=== PATIENT | male | born 1980 | race Caucasian/White ===

== ENCOUNTER 2020-09-17 10:44 | Outpatient (REF) | payer OTHER, SELFPAY ==
--- NOTE | 2020-09-17 11:06 | XR_ITS ---
EXAMINATION: XR LUMBOSACRAL SPINE CLINICAL INFORMATION: Back pain. COMPARISON: None TECHNIQUE: Three views of the lumbosacral spine. FINDINGS: There is mild straightening of lumbar lordosis with ankyloses of posterior elements consistent with ankylosing spondylitis. There is no visible fractures seen. There is loss of disc height at L2-L3, L3-L4 and L4-L5 disc heights. The neural foramina appear to be patent. The paravertebral soft tissues are normal. No lytic process. XR/XR lumbar spine 2-3V IMPRESSION: Ankylosing spondylitis involving the posterior elements with straightening of lumbar lordosis. No visible acute fracture or lytic process seen.
[2020-09-17 11:56] LABS: MANUAL DIFF FLAG NO
[2020-09-17 12:07] LABS: Basophils Absolute Auto 0.1 X10*3/uL (0.0-0.2); Basophils Percent Auto 1.7 % (0-2); Eosinophils Absolute Auto 0.3 X10*3/uL (0.0-0.4); Eosinophils Percent Auto 5.9 % (0-4); Hematocrit 47.2 % (42-52); Hemoglobin 16.1 g/dl (14.0-18.0); Imm Gran Abs Auto 0.01 X10*3/uL (0.00-0.03); Imm Gran Pct Auto 0.2 % (0.0-0.4); Lymphocytes Absolute Auto 1.9 X10*3/uL (1.2-4.9); Lymphocytes Percent Auto 36.5 % (20-40); Mean Corpuscular HGB Conc 34.1 g/dl (31.0-36.0); Mean Corpuscular Hemoglobin 32.3 pg (27.0-33.0); Mean Corpuscular Volume 94.8 fL (80-98); Monocytes Absolute Auto 0.4 X10*3/uL (0.1-1.2); Monocytes Percent Auto 7.8 % (2-11); Neutrophils Absolute Auto 2.5 X10*3/uL (2.0-8.3); Neutrophils Percent Auto 47.9 % (45-73); Platelet Count 202 X10*3/uL (160-400); Red Blood Count 4.98 X10*6/uL (4.60-5.80); Red Cell Distribution Width 12.4 % (11.0-16.0); White Blood Count 5.3 X10*3/uL (4.8-10.8)
[2020-09-17 12:35] LABS: Alanine Aminotransferase 155 U/L (0-40); Albumin Level 4.9 g/dL (3.5-5.0); Alkaline Phosphatase 50 U/L (39-117); Anion Gap 12 (12-20); Aspartate Amino Transferase 72 U/L (5-37); Bilirubin Total 1.2 mg/dL (0.0-1.0); Blood Urea Nitrogen 17 mg/dL (9-16); Calcium 8.8 mg/dL (8.4-10.2); Carbon Dioxide 30 mmol/L (22-29); Chloride 104 mmol/L (96-108); Cholesterol 275 mg/dL; Estimated Glomerular Filt Rate > 60; Glucose Random 84 mg/dL (60-115); Potassium 4.7 mmol/l (3.3-5.1); Sodium 141 mmol/L (135-145); Total Protein 7.7 g/dL (6.5-8.0)
== END 2020-09-17 10:45 | disposition home or self-care (01) ==
LOC: HO.LAB 10:44
PROVIDERS: PCP Internal Medicine; Visit Provider Internal Medicine
DX: M54.9 Dorsalgia, unspecified (principal); J45.909 Unspecified asthma, uncomplicated; R79.89 Other specified abnormal findings of blood chemistry
CPT/HCPCS: 36415; 72100; 80053; 82465; 85025

== ENCOUNTER 2020-09-28 07:42 | Outpatient (REF) | payer OTHER, SELFPAY ==
--- NOTE | 2020-09-28 | US_ITS ---
EXAMINATION: US ABDOMEN COMPLETE CLINICAL INFORMATION: Elevated liver enzymes. COMPARISON: KUB dated 07/28/2014 and renal ultrasound dated 06/19/2014 TECHNIQUE: Real-time imaging of the abdominal viscera. FINDINGS: PANCREAS: Visualized portions of the pancreas are unremarkable. ABDOMINAL AORTA: The proximal, mid, and distal segments are normal in caliber. INFERIOR VENA CAVA: Visualized portions are normal. LIVER: The liver is normal in size. The liver contour is normal. There is increased liver parenchymal echogenicity with some areas of normal echogenicity likely reflecting hepatic steatosis with focal fatty sparing. No discrete lesions. No focal hepatic lesion. There is no intrahepatic biliary duct dilatation seen. GALLBLADDER: The gallbladder is physiologically distended without evidence of stones, sludge, polyps, wall thickening or pericholecystic fluid. COMMON BILE DUCT: Normal in caliber measuring 0.3 cm in diameter. RIGHT KIDNEY: No hydronephrosis or focal parenchymal lesions. The kidney measures 10.6 cm in maximum dimension. Upper pole nonobstructing 3 mm calculus and a lower pole nonobstructing 3.5 mm calculus. LEFT KIDNEY: No hydronephrosis or focal parenchymal lesions. The kidney measures 10.8 cm in maximum dimension. Nonobstructing calculi in the midpole measuring 4 mm, 3 mm and 6 mm SPLEEN: Normal. The spleen measures 11.4 cm in maximum dimension. FREE FLUID: None. US/US abdomen complete IMPRESSION: Bilateral nonobstructing renal calculi. Hepatic steatosis with areas of focal fatty sparing.
== END 2020-09-28 07:43 | disposition home or self-care (01) ==
LOC: HO.US 07:42
PROVIDERS: PCP Internal Medicine; Visit Provider Internal Medicine
DX: R94.5 Abnormal results of liver function studies (principal)
CPT/HCPCS: 76700

== ENCOUNTER 2023-06-06 16:49 | Emergency (ER) | payer OTHER, SELFPAY ==
[2023-06-06 17:28] VITALS: BP 153/82; PULSE 55; RESP 18; TEMP 36.9; O2SAT 98; BMI 28.4
--- NOTE | 2023-06-06 17:28 | ED_ITS ---
HPI - General Adult General Chief complaint: Skin/Abscess/Foreign Body Stated complaint: sun blisters on back Time Seen by Provider: 06/06/23 17:28 Source: patient Mode of arrival: ambulatory Limitations: no limitations History of Present Illness HPI narrative: 43 yo male with history of asthma, chronic back and hip pain here with sunburn to back x 3 days after working outside in the sun for long hours with no anderson nscreen. Related Data Allergies Allergy/AdvReac Type Severity Reaction Status Date / Time iodine [IODINE] Allergy Mild RASH Unverified 08/06/20 17:34 Review of Systems Review of Systems: Yes all other systems are reviewed and are negative Constitutional: Constitutional: Reports no additional constitutional complaints, Denies body ache(s), Denies chills, Denies fever(s), Denies headache(s) and Denies weakness Eyes: Eyes: Reports no additional eye complaints and Denies change in vision ENT: Reports system reviewed and no additional complaints, except as documented, Denies dizziness, Denies headache(s), Denies nasal congestion, Denies nasal discharge and Denies neck pain Cardiovascular: Cardiovascular: Reports no additional cardiovascular complaints, Denies chest pain, Denies leg edema and Denies dyspnea Respiratory: Respiratory: Reports no additional respiratory complaints, Denies cough and Denies dyspnea Gastrointestinal: Gastrointestinal: Reports no additional gastrointestinal complaints, Denies abdominal pain, Denies diarrhea, Denies nausea and Denies vomiting Genitourinary: Genitourinary: Denies urinary incontinence Musculoskeletal: Musculoskeletal: Reports no additional musculoskeletal complaints, Denies back pain, Denies arthralgias, Denies joint swelling, Denies neck pain, Denies numbness and Denies tingling Integumentary/Breasts: Skin/Breast: Reports system reviewed and no additional complaints, except as docu and Reports rash Neurologic: Reports system reviewed and no additional complaints, except as documented, Denies dizziness, Denies headache(s), Denies numbness, Denies tingling and Denies weakness [facility] Past Medical History Attestation statement: The following information was validated with the patient. Source: old records reviewed and nursing notes reviewed Social History Social History Advance Directives: No Advance Directives Information Provided: No Physical Exam ED Vital Signs: Vital Signs - 24 hr 06/06/23 17:28 Temperature 98.5 F Pulse Rate 55 Respiratory Rate 18 Blood Pressure 153/82 H Pulse Oximetry 98 Oxygen Delivery Method Room Air BMI result Body Mass Index 28.4 Const General: cooperative, healthy appearing, comfortable and no acute distress Orientation/consciousness: patient oriented x3 Limitations: no limitations HENMT Head: Yes normal to inspection Ears: hearing grossly normal bilaterally Eyes General: appearance normal, both eyes and all related structures Pupils: Equal, round and reactive pupils present Neck Neck: Yes normal visual inspection Chest Chest palpation & inspection: normal inspection of the chest Resp Effort & Inspection: normal respiratory effort Auscultation: clear to auscultation bilaterally Cardio Rate: regular rate Rhythm: regular rhythm Peripheral pulses: Peripheral pulses 2+ throughout GI Inspection: Yes normal to inspection Skin Other: To the upper and lower back there is erythema-blanchable. Several small areas of blistering Neuro General: patient oriented x3 Cranial nerves: Yes Equal, round and reactive pupils present Medical Decision Making Medical Decision Making MDM Narrative: 43 yo male here with sunburn to back x 3 days. On exam patient has erythema to the upper and lower back with several areas of blistering. Overall patient non toxic appearing We discussed cold compresses, motrin/tylenol, aloe vera as needed Differential Diagnosis Differential Diagnoses: The differential diagnosis associated with the presentation includes Sun burn Less likely sun poisoning, heat exhaustion, cellulitis Discharge Plan Discharge Clinical Impression: Sunburn Patient Disposition: Home, Self-Care Instructions: Sunburn (ED), Cold Compress or Soak (ED) Additional Instructions: Motrin or tylenol for pain as needed Cold compresses Topical aloe vera as tolerated Referrals: Ted Lockwood MD [Primary Care Provider] - 1 week
== END 2023-06-06 17:46 | disposition home or self-care (01) ==
LOC: HO.ED 17:40
PROVIDERS: Emergency Provider Student in an Organized Health Care Education/Training Program; PCP Internal Medicine
DX: L55.9 Sunburn, unspecified (principal)
CPT/HCPCS: 99282

== ENCOUNTER 2024-05-13 09:27 | Outpatient (REF) | payer OTHER, SELFPAY ==
[2024-05-13 11:07] LABS: MANUAL DIFF FLAG NO
[2024-05-13 11:10] LABS: Basophils Absolute Auto 0.1 X10*3/uL (0.0-0.2); Basophils Percent Auto 1.6 % (0-2); Eosinophils Absolute Auto 0.3 X10*3/uL (0.0-0.4); Eosinophils Percent Auto 5.3 % (0-4); Hematocrit 43.3 % (42.0-52.0); Hemoglobin 14.9 g/dl (14.0-18.0); Imm Gran Abs Auto 0.01 X10*3/uL (0.00-0.03); Imm Gran Pct Auto 0.2 % (0.0-0.4); Lymphocytes Absolute Auto 1.2 X10*3/uL (1.2-4.9); Lymphocytes Percent Auto 24.3 % (20-40); Mean Corpuscular HGB Conc 34.4 g/dl (31.0-36.0); Mean Corpuscular Hemoglobin 31.6 pg (27.0-33.0); Mean Corpuscular Volume 91.9 fL (80.0-98.0); Mean Platelet Volume 10.7 fL (9.4-12.4); Monocytes Absolute Auto 0.4 X10*3/uL (0.1-1.2); Monocytes Percent Auto 7.8 % (2-11); Neutrophils Percent Auto 60.8 % (45-73); Platelet Count 210 X10*3/uL (160-400); Red Blood Count 4.71 X10*6/uL (4.60-5.80); Red Cell Distribution Width 12.8 % (11.0-16.0); White Blood Count 4.9 X10*3/uL (4.8-10.8)
[2024-05-13 11:28] LABS: Alanine Aminotransferase 63 U/L (0-40); Albumin Level 4.7 g/dL (3.5-5.0); Alkaline Phosphatase 43 U/L (39-117); Anion Gap 16 (12-20); Aspartate Amino Transferase 36 U/L (5-37); Blood Urea Nitrogen 18 mg/dL (9-16); Calcium 9.2 mg/dL (8.4-10.2); Carbon Dioxide 28 mmol/L (22-29); Chloride 105 mmol/L (96-108); Cholesterol 197 mg/dL (<200); Estimated Glomerular Filt Rate > 60; Glucose Fasting 78 mg/dL (60-99); HDL Cholesterol 37 mg/dL (>40); LDL Cholesterol Calculated 130 mg/dL (<100); Potassium 3.9 mmol/L (3.3-5.1); Sodium 145 mmol/L (135-145); Total Protein 7.7 g/dL (6.5-8.0); Triglycerides 153 mg/dL (<150)
[2024-05-13 11:47] LABS: ~HepC Num1 0.27 S/CO (0.00-0.79); ~Hepatitis C Antibody Nonreactive (Nonreactive)
== END 2024-05-13 09:28 | disposition home or self-care (01) ==
LOC: HO.10HDL 09:27
PROVIDERS: Visit Provider Internal Medicine
DX: E78.00 Pure hypercholesterolemia, unspecified (principal); R79.89 Other specified abnormal findings of blood chemistry
CPT/HCPCS: 36415; 80053; 80061; 85025; 86803

== ENCOUNTER 2025-01-18 17:23 | Emergency (ER) | payer OTHER, SELFPAY ==
--- NOTE | ~2025-01-18 | XR_ITS ---
CLINICAL HISTORY: trauma 3 view third digit/middle finger of the left hand Comparison: None Findings: There is a 7 x 5 mm avulsed bony fragment in the base of the distal phalanx along the dorsal aspect. No dislocation. No significant loss of joint space or osteophytes. No erosions. No radiopaque foreign body. IMPRESSION: Large avulsion fracture of the base of the distal phalanx with dorsal displacement. This document has been electronically signed by: Darya Saul DO on 01/18/2025 18:39:12
--- NOTE | ~2025-01-18 | XR_ITS ---
CLINICAL HISTORY: trauma 2 view left forearm Comparison: None Findings: There is a comminuted fracture in the distal ulnar diametaphysis. There is medial displacement with 3 mm maximum step-off. There is mild dorsal tilting. No joint effusion. No significant arthritic change. No radiopaque foreign body. Mild triceps tendon enthesopathy with a small defect. IMPRESSION: 1. Soft tissue swelling in the distal forearm with a mildly displaced and mildly angulated comminuted fracture in the distal ulna. 2. Age-indeterminate fragmented small posterior olecranon spur. This document has been electronically signed by: Darya Saul DO on 01/18/2025 18:28:52
[2025-01-18 17:33] VITALS: BP 158/94; PULSE 85; RESP 18; TEMP 36.8; O2SAT 94; BMI 24.8
[2025-01-18 18:16] VITALS: BP 183/106; PULSE 80; RESP 20; TEMP 36.9; O2SAT 93
[2025-01-18] MEDS: Ketorolac Tromethamine 30 MG/ML VIAL IVPUSH (18:29)
[2025-01-18] MEDS: ondansetron HCL 4 MG/2 ML VIAL IVPUSH (18:29)
[2025-01-18] MEDS: Morphine Sulfate 4 MG/ML CARTRIDGE IVPUSH (20:28)
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
[2025-01-18 21:39] VITALS: BP 183/106; PULSE 80; RESP 20; TEMP 36.9; O2SAT 93
== END 2025-01-18 21:40 | disposition home or self-care (01) ==
PROVIDERS: Emergency Provider Emergency Medicine
DX: S52.692A Other fracture of lower end of left ulna, initial encounter for closed fracture (principal); S62.633A Displaced fracture of distal phalanx of left middle finger, initial encounter for closed fracture; Y04.2XXA Assault by strike against or bumped into by another person, initial encounter; Y93.89 Activity, other specified; Y92.199 Unspecified place in other specified residential institution as the place of occurrence of the external cause; Y99.9 Unspecified external cause status
CPT/HCPCS: 29125; 73090; 73140; 96374; 96375; 99283; 99284; J1885; J2270; J2405

== ENCOUNTER → 2025-01-18 17:53 | Outpatient (BNV) | payer OTHER, SELFPAY | PROVIDERS: Visit Provider Radiology Diagnostic Radiology | DX: M25.532 Pain in left wrist (principal); M79.642 Pain in left hand | CPT/HCPCS: 73090; 73140 ==

== ENCOUNTER 2025-01-22 08:45 | Outpatient (AMB) | payer OTHER, SELFPAY ==
[2025-01-22 09:10] VITALS: BMI 24.8
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
== END 2025-01-22 10:26 | disposition home or self-care (01) ==
PROVIDERS: Visit Provider Orthopaedic Surgery
DX: S52.202A Unspecified fracture of shaft of left ulna, initial encounter for closed fracture (principal); S62.633A Displaced fracture of distal phalanx of left middle finger, initial encounter for closed fracture; F17.210 Nicotine dependence, cigarettes, uncomplicated; J45.909 Unspecified asthma, uncomplicated
CPT/HCPCS: 25560; 99204

== ENCOUNTER → 2025-01-22 08:55 | Outpatient (BNV) | payer OTHER, SELFPAY | PROVIDERS: Visit Provider Radiology Diagnostic Radiology | DX: M25.532 Pain in left wrist (principal); S52.202A Unspecified fracture of shaft of left ulna, initial encounter for closed fracture; M79.642 Pain in left hand; S62.633A Displaced fracture of distal phalanx of left middle finger, initial encounter for closed fracture | CPT/HCPCS: 73110; 73130 ==

== ENCOUNTER 2025-01-22 14:48 | Outpatient (REF) | payer OTHER, SELFPAY ==
--- NOTE | ~2025-01-22 | XR_ITS ---
CLINICAL HISTORY: M25.532 - Pain in left wrist 3 view left hand 3 view left wrist Comparison: CR - XR FOREARM LT 2V - 01/18/25 17:58 EST CR - XR FINGER LT MIN 2V - 01/18/25 17:57 EST Findings: Comminuted fracture of the base of the 3rd distal phalanx with extension to the distal interphalangeal joint. There is posterior displacement of the comminuted fracture fragments. This is not significantly changed. No significant bony reparative changes. An additional small nondisplaced avulsion fracture at the palmar aspect of the base of the middle phalanx with extension to the proximal interphalangeal joint which was previously not seen. Comminuted fracture at the distal ulna metadiaphysis with mild dorsal angulation. This is not significantly changed from the previous examination. No significant bony reparative changes. No additional fracture seen. No dislocation. No erosions. Soft tissue swelling has improved. No radiopaque foreign body. IMPRESSION: 1. New small nondisplaced avulsion fracture at the palmar aspect of the base of the middle phalanx with extension to the proximal interphalangeal joint. 2. Improvement in soft tissue swelling. Otherwise, no significant change in the comminuted fracture of the base of the 3rd distal phalanx and distal ulna. No radiographic evidence of bony reparative changes. This document has been electronically signed by: Laurel Acosta MD on 01/24/2025 11:15:00
--- NOTE | ~2025-01-22 | XR_ITS ---
CLINICAL HISTORY: M79.642 - Pain in left hand 3 view left hand 3 view left wrist Comparison: CR - XR FOREARM LT 2V - 01/18/25 17:58 EST CR - XR FINGER LT MIN 2V - 01/18/25 17:57 EST Findings: Comminuted fracture of the base of the 3rd distal phalanx with extension to the distal interphalangeal joint. There is posterior displacement of the comminuted fracture fragments. This is not significantly changed. No significant bony reparative changes. An additional small nondisplaced avulsion fracture at the palmar aspect of the base of the middle phalanx with extension to the proximal interphalangeal joint which was previously not seen. Comminuted fracture at the distal ulna metadiaphysis with mild dorsal angulation. This is not significantly changed from the previous examination. No significant bony reparative changes. No additional fracture seen. No dislocation. No erosions. Soft tissue swelling has improved. No radiopaque foreign body. IMPRESSION: 1. New small nondisplaced avulsion fracture at the palmar aspect of the base of the middle phalanx with extension to the proximal interphalangeal joint. 2. Improvement in soft tissue swelling. Otherwise, no significant change in the comminuted fracture of the base of the 3rd distal phalanx and distal ulna. No radiographic evidence of bony reparative changes. This document has been electronically signed by: Laurel Acosta MD on 01/24/2025 11:14:15
== END 2025-01-22 14:49 | disposition home or self-care (01) ==
LOC: HO.HOSX 14:48
PROVIDERS: Visit Provider Orthopaedic Surgery
DX: M25.532 Pain in left wrist (principal); M79.642 Pain in left hand; S52.202A Unspecified fracture of shaft of left ulna, initial encounter for closed fracture; S62.633A Displaced fracture of distal phalanx of left middle finger, initial encounter for closed fracture; J45.909 Unspecified asthma, uncomplicated; F17.210 Nicotine dependence, cigarettes, uncomplicated
CPT/HCPCS: 25560; 73110; 73130; 99202

== ENCOUNTER 2025-01-23 07:48 | Day surgery (SDC) | payer OTHER, SELFPAY ==
[2025-01-22 10:45] VITALS: BMI 24.8
--- NOTE | 2025-01-22 12:16 | HO.ANESPROP2 ---
Documented by User: Sweta Hatch NP 01/22/25 12:16 HPI - Anesthesia Eval Consult details Narrative: 44yo M for Left Ulna Shaft Fracture ORIF, Middle Finger Fx CRPP vs ORIF PMFSH Active Problems Active Problems: All Active Problems Asthma (Acute) Cigarette smoker (Acute) Fracture of distal phalanx of left middle finger (Acute) Fracture of shaft of left ulna (Acute) Past Medical History Medical History Smoker Asthma Surgical History Surgical History Previous back surgery Social History Social History Patient Tobacco Use Status: Current everyday Tobacco user Have you been hit, kicked, punched, or otherwise hurt by someone within the past year? If so, by whom?: No Are you DNR?: No Advance Directives: No Advance Directives Information Provided: Yes Current occupational status: unemployed Current occupation: left hand Meds Allergies Allergy/AdvReac Type Severity Reaction Status Date / Time iodine [IODINE] Allergy Mild RASH Verified 01/22/25 09:19 latex Allergy Hives Verified 01/23/25 08:15 seafood Allergy Difficulty Verified 01/23/25 08:16 Breathing Home Medications ?Medication ?Instructions ?Recorded ?Confirmed ?Last Taken ?Type oxycodone 5 mg tablet 5 mg PO Q6H PRN severe pain 01/23/25 01/23/25 01/21/25 History Exam Height,Weight and Vital Signs: Height 6 ft Weight 83.007 kg Assessment and Plan Assessment Anesthesia Assessment: Chart Reviewed Documented by User: Viviana Love MD 01/23/25 14:40 PMFSH Past Medical History Medical History Smoker Asthma Family History Family history of problems with anesthesia: No Surgical History Surgical History Previous back surgery History of Problems with Anesthesia: No Social History Social History Patient Tobacco Use Status: Current everyday Tobacco user Have you been hit, kicked, punched, or otherwise hurt by someone within the past year? If so, by whom?: No Are you DNR?: No Advance Directives: No Advance Directives Information Provided: Yes Current occupational status: unemployed Current occupation: left hand Meds Allergies Allergy/AdvReac Type Severity Reaction Status Date / Time iodine [IODINE] Allergy Mild RASH Verified 01/22/25 09:19 latex Allergy Hives Verified 01/23/25 08:15 seafood Allergy Difficulty Verified 01/23/25 08:16 Breathing Home Medications ?Medication ?Instructions ?Recorded ?Confirmed ?Last Taken ?Type oxycodone 5 mg tablet 5 mg PO Q6H PRN severe pain 01/23/25 01/23/25 01/21/25 History Exam Airway Mallampati Class: II TM Dist: >3cm Neck ROM: Full Heart: rrr Lungs: cta Assessment and Plan Assessment Anesthesia Assessment: Anesthesia Plan Discussed Final Anesthetic Review Family History of Problems with Anesthesia: No History of Problems with Anesthesia: No NPO: Yes ASA Class: II (david) Final Preanesthetic Review: No Changes in Pt Med Stat, Meds/Allgs Chart Reviewed, Consent Obtained/Reviewed and Anes Risks/Benef Reviewed Patient Risk: Low Procedure Risk: Low Anesthetic Plan Anesthetic Plan: GA and Regional Block Disposition: Standard PACU
[2025-01-23] VITALS (7 sets, daily range): BP systolic 126–151; BP diastolic 81–100; PULSE 58–68; RESP 16–18; TEMP 36.3–36.9; O2SAT 93–97; BMI 25.5
--- NOTE | ~2025-01-23 | FL_ITS ---
EXAMINATION: FL GUIDANCE ONLY HISTORY: ULNA ORIF LEFT COMPARISON: Correlation is made with plain films of the left hand and wrist dated 01/22/2025. TECHNIQUE: Fluoroscopy time: 49.20 seconds. Cumulative Dose: 1.2130 mGy. DAP: 0.0733 mGym2 Images: 11. FINDINGS: Images demonstrate internal fixation of the previously seen comminuted fracture of the distal ulnar diaphysis with a plate and screws, as well as internal fixation of the previously seen comminuted fracture of the distal phalanx of the 3rd finger with a wire. FL/FL guidance in OR IMPRESSION: Fluoroscopy during procedure. Please see procedure report for additional information. Electronically signed by: Merritt Malone MD 01/27/2025 11:43 AM EDT
[2025-01-23] MEDS: Lactated Ringers 1,000 ML 100 ML IVCONT (08:49)
--- NOTE | 2025-01-23 15:02 | MHC.SHP ---
Pre-Procedural Eval Section A - 24 Hr Update-Section A only Date of Service: 01/23/25 The patient is an INPATIENT: No Changes since office visit: No Cold of Flu in the past 2 weeks, No New Medical Problems, No Changes in Medication and No Patient answered all questions The patient has been examined within 24 hours of the surgical procedure. The History & Physical has been completed within 30 days and I have reviewed it.: Yes Section B - Complete if H&P > 30 days Chief Complaint: Unspecified fracture of shaft of left ulna, Allergies: Allergies Allergy/AdvReac Type Severity Reaction Status Date / Time iodine [IODINE] Allergy Mild RASH Verified 01/22/25 09:19 latex Allergy Hives Verified 01/23/25 08:15 seafood Allergy Difficulty Verified 01/23/25 08:16 Breathing Plan I have reviewed the history and physical and performed a pertinent physical examination on my patient. No changes have occurred unless specified. Time Spent With Patient Time: Total time managing care of this patient today ____ minutes.
--- NOTE | 2025-01-23 15:02 | W.PM.OPN ---
Operative Note Operative Note Date of Service: 01/23/25 Narrative: Operative Note Narrative: Preop diagnosis: 1. Left distal ulnar shaft fracture with comminution 2. Left middle finger distal phalanx fracture, possibly open Postop diagnosis: Same Procedure: 1. Left distal ulnar shaft fracture ORIF 2. Left middle finger distal phalanx fracture closed reduction percutaneous pinning, Surgeon: Jaquelin Avelar MD Email Designer: Nathanael BEST Anesthesia: General Anesthesia plus regional block Findings: Comminuted ulnar shaft fracture Implants: Accu Med volar distal ulnar shaft locking plate, long, 2.3 mm screws times 4, and 3.5 mm screws x3 0.045 K-wires times 1 Tourniquet time: 73 minutes EBL: 5.0 ml Specimen: None Drains: None Complications: None Disposition: Brought to the recovery room in stable condition Plan: Discharge home with 1 week of p.o. Augmentin for possible open distal phalanx fracture Follow-up in 10-14 days for wound check, suture removal and pre clinic x-rays. At follow-up place in short-arm cast for an additional 3 weeks or until healing of ulna shaft fracture Anticipate removal of K-wire at 5-6 weeks Indications: The patient is a 44 year old man with a left comminuted distal ulnar shaft fracture from a nightstick type injury, and a left middle finger bony mallet fracture where he is unsure whether he had bleeding from under the nail . The risks and benefits of operative treatment, including but not limited to risk of damage to blood vessels, nerves, tendons, infection, recurrence, persistent pain or numbness, incomplete resolution of preoperative symptoms, or need for further surgery were discussed with the patient and they wished to proceed with surgery. Procedure: Once consent was obtained patient was brought back to the operating suite and placed in the operating table in a supine position. A regional block was performed by the anesthesia team. Perioperative antibiotics and anesthesia was administered by the anesthesia team. A tourniquet was applied to the proximal aspect of the left upper extremity and the limb was prepped and draped in a standard surgical fashion. The limb was elevated exsanguinated with Esmarch bandage and the tourniquet inflated to 250 mm of mercury for a total tourniquet time of 73 minutes. I made a 9 cm longitudinal incision over the distal aspect of the left ulnar shaft. The incision was made through the skin the subcutaneous tissues using a 15. Blade. I then dissected down to the ulnar border of the distal ulnar shaft using tenotomy scissors. I then elevated the pronator quadratus off the volar surface of the distal ulnar shaft using a 15. Blade and an elevator. There was some comminution of the ulnar shaft. I performed an open reduction. I then placed the long [facility] volar distal ulnar plate and positioned it appropriately on the ulnar shaft. It was held in position using 2 K-wires. I was happy with our reduction and placement of the volar locking plate on fluoroscopic images. I then placed a 3.5 mm cortical screw through the proximal oval hole after 1st drilling bicortically with a 2.8 mm drill bit and measuring with a depth gauge. I then placed a 3.5 mm locking screw through the proximal hole in the plate after 1st drilling with a 2.8 mm drill bit through the pre position drill guide and measuring with a depth gauge. I then placed 4x 2.3 mm locking screws in the distal aspect of the plate after drilling with a 2.0 mm drill bit with a pre position drill guide and measuring with a depth gauge. I then placed 1 additional 3.5 mm locking screw proximally in the plate with the technique noted above. The K-wires had been removed. Final radiographs were obtained and I was very satisfied with our reduction and placement of all implants. At this point the tourniquet was deflated and hemostasis obtained with a brief period of local pressure and bipolar electrocautery. The wound was copiously irrigated with normal saline. The subcutaneous layer was closed with 4-0 Vicryl suture, and the skin edges were reapproximated with 5-0 nylon suture. The wound was infiltrated with some 1% lidocaine with epinephrine for postop pain control and a sterile dressing was applied. The patient was then placed in a sugar-tong splint. I then turned my attention to the left middle finger bony mallet fracture of the distal phalanx. A closed reduction was performed and I placed a 0.045 K-wire retrograde through the tip of the finger. This was advanced retrograde across the D IP joint and into the middle phalanx. The dorsal fragment was also noted to be appropriately reduced. Once satisfied with the reduction I then bent the K-wire cut it short and placed a pin cap. A sterile dressing was applied. I then applied a volar Alumafoam splint. The patient appears to have tolerated the procedure well and with no complications. All digits were well vascularized conclusion of the case.
--- NOTE | 2025-01-23 15:58 | P.CONAN_ITS ---
[facility] Active Problems Active Problems: All Active Problems Asthma (Acute) Cigarette smoker (Acute) Fracture of distal phalanx of left middle finger (Acute) Fracture of shaft of left ulna (Acute) Past Medical History Medical History Smoker Asthma Functional capacity: independent ambulation Family History Family history of problems with anesthesia: No Surgical History Surgical History Previous back surgery History of Problems with Anesthesia: No Social History Social History Patient Tobacco Use Status: Current everyday Tobacco user Have you been hit, kicked, punched, or otherwise hurt by someone within the past year? If so, by whom?: No Are you DNR?: No Advance Directives: No Advance Directives Information Provided: Yes Current occupational status: unemployed Current occupation: left hand Meds Allergies Allergy/AdvReac Type Severity Reaction Status Date / Time iodine [IODINE] Allergy Mild RASH Verified 01/22/25 09:19 latex Allergy Hives Verified 01/23/25 08:15 seafood Allergy Difficulty Verified 01/23/25 08:16 Breathing Active Medications: Current Medications Albuterol Sulfate (Albuterol Sulfate (0.083%) 2.5 Mg/3 Ml Vial.Neb) 2.5 mg INHALE ONCE PRN PRN Reason: Shortness of Breath/Wheezing Lactated Ringer's (Lr) 1,000 mls @ 100 mls/hr IVCONT .Q10H SREEDHAR Last Admin: 01/23/25 08:49 Dose: 100 mls/hr Naloxone HCl (Naloxone Hcl 0.4 Mg/Ml Vial) 0.04 mg IVPUSH Q5M PRN PRN Reason: Excessive sedation or RR < 8 Ondansetron HCl (Ondansetron Hcl 4 Mg/2 Ml Vial) 4 mg IVPUSH ONCE PRN PRN Reason: Nausea and Vomiting Stop: 01/23/25 20:42 Home Medications ?Medication ?Instructions ?Recorded ?Confirmed ?Last Taken ?Type oxycodone 5 mg tablet 5 mg PO Q6H PRN severe pain 01/23/25 01/23/25 01/21/25 History Exam Height,Weight and Vital Signs: Height 6 ft Weight 85.23 kg Last Vital Signs Temp 98.4 F 01/23/25 13:52 Pulse 59 01/23/25 13:52 Resp 18 01/23/25 13:52 BP 131/81 01/23/25 13:52 Pulse Ox 97 01/23/25 13:52 O2 Del Method Room Air 01/23/25 13:52 Airway Mallampati Class: II TM Dist: >3cm Neck ROM: Full Heart: RRR Lungs: CTA Assessment and Plan Assessment Anesthesia Assessment: Anesthesia Plan Discussed and Chart Reviewed Final Anesthetic Review Family History of Problems with Anesthesia: No History of Problems with Anesthesia: No NPO: Yes ASA Class: II Final Preanesthetic Review: Meds/Allgs Chart Reviewed, Consent Obtained/Reviewed and Anes Risks/Benef Reviewed Patient Risk: Low Procedure Risk: Low Anesthetic Plan Anesthetic Plan: GA Disposition: Standard PACU
== END 2025-01-23 19:03 | disposition home or self-care (01) ==
PROVIDERS: Visit Provider Orthopaedic Surgery
PROC: (CPT 25545; principal; 2025-01-23 14:30)
PROC: (CPT 25545; 2025-01-23 14:30)
DX: S52.252A Displaced comminuted fracture of shaft of ulna, left arm, initial encounter for closed fracture (principal); S62.633A Displaced fracture of distal phalanx of left middle finger, initial encounter for closed fracture; Y00.XXXA Assault by blunt object, initial encounter; Y93.89 Activity, other specified; Y92.099 Unspecified place in other non-institutional residence as the place of occurrence of the external cause; Y99.9 Unspecified external cause status; J45.909 Unspecified asthma, uncomplicated; Z79.1 Long term (current) use of non-steroidal anti-inflammatories (NSAID); Z91.040 Latex allergy status; Z91.041 Radiographic dye allergy status; F17.210 Nicotine dependence, cigarettes, uncomplicated; Z98.890 Other specified postprocedural states; Z56.0 Unemployment, unspecified
CPT/HCPCS: 25545; 26756; C1713; J0131; J0171; J0665; J0690; J1100; J2003; J2004; J2250; J2405; J2704; J3010

== ENCOUNTER → 2025-01-23 07:48 | Outpatient (BNV) | payer OTHER, SELFPAY | PROVIDERS: Visit Provider Orthopaedic Surgery | DX: S52.202A Unspecified fracture of shaft of left ulna, initial encounter for closed fracture (principal); S62.633A Displaced fracture of distal phalanx of left middle finger, initial encounter for closed fracture | CPT/HCPCS: 25545; 26756 ==

== ENCOUNTER 2025-02-04 08:27 | Outpatient (REF) | payer OTHER, SELFPAY ==
--- NOTE | ~2025-02-04 | XR_ITS ---
EXAMINATION: XR FOREARM 2 VIEWS LEFT, XR HAND 3 OR MORE VIEWS LEFT HISTORY: S52.90XA - Unspecified fracture of unspecified forearm, initial encounter... COMPARISON: Comparison is made with the prior examination of the left hand dated 01/22/2025 and the prior examination of the left forearm dated 01/18/2025. FINDINGS: Three views of the left hand and AP and lateral views of the left forearm are submitted. Osseous mineralization is normal. In the interval since the prior study, the patient is status post internal fixation of the previously seen fracture of the distal phalanx of the middle finger with a single K wire. A dorsal fracture fragment remains mildly displaced. The remaining bones of the hand are intact. The patient is also status post internal fixation of the previously noted comminuted fracture of the distal ulnar metadiaphysis with a sideplate and multiple orthopedic screws. Alignment is near-anatomic. The joint spaces are maintained. The soft tissues are unremarkable. XR/XR forearm LT 2V IMPRESSION: Internal fixation of the previously seen fractures of the distal phalanx of the middle finger and the distal ulnar metadiaphysis. Electronically signed by: Merritt Malone MD 02/05/2025 07:50 AM EDT
--- NOTE | ~2025-02-04 | XR_ITS ---
EXAMINATION: XR FOREARM 2 VIEWS LEFT, XR HAND 3 OR MORE VIEWS LEFT HISTORY: S52.90XA - Unspecified fracture of unspecified forearm, initial encounter... COMPARISON: Comparison is made with the prior examination of the left hand dated 01/22/2025 and the prior examination of the left forearm dated 01/18/2025. FINDINGS: Three views of the left hand and AP and lateral views of the left forearm are submitted. Osseous mineralization is normal. In the interval since the prior study, the patient is status post internal fixation of the previously seen fracture of the distal phalanx of the middle finger with a single K wire. A dorsal fracture fragment remains mildly displaced. The remaining bones of the hand are intact. The patient is also status post internal fixation of the previously noted comminuted fracture of the distal ulnar metadiaphysis with a sideplate and multiple orthopedic screws. Alignment is near-anatomic. The joint spaces are maintained. The soft tissues are unremarkable. XR/XR hand LT min 3V IMPRESSION: Internal fixation of the previously seen fractures of the distal phalanx of the middle finger and the distal ulnar metadiaphysis. Electronically signed by: Merritt Malone MD 02/05/2025 07:50 AM EDT
== END 2025-02-04 08:28 | disposition home or self-care (01) ==
LOC: HO.HOSX 08:27
DX: M79.642 Pain in left hand (principal); S52.202D Unspecified fracture of shaft of left ulna, subsequent encounter for closed fracture with routine healing; S62.633D Displaced fracture of distal phalanx of left middle finger, subsequent encounter for fracture with routine healing; Z98.890 Other specified postprocedural states
CPT/HCPCS: 29075; 73090; 73130; 99212

== ENCOUNTER 2025-02-04 12:36 | Outpatient (AMB) | payer OTHER, SELFPAY ==
--- NOTE | 2025-02-04 12:56 | MHC.OFFVIS ---
Intake Visit Reasons: PO LT ulna shaft/MF P3 CRPP v ORIF 01/23/25 AR Intake Note: Abhi is a 44 year old left hand dominant man who presents today post operatively s/p Left distal ulnar shaft fracture ORIF and left middle finger distal phalanx fracture CRPP DOS: 01/23/25 w/ Dr Jaquelin Avelar. Patient reports that he is experiencing a burning throbbing pain with a current pain level 8 out of 10. He states pain medication oxycodone had not helped with his pain. He has completed antibiotics as prescribed. Allergies iodine [IODINE] Allergy (Mild, Verified 02/04/25 13:03) RASH latex Allergy (Verified 02/04/25 13:03) Hives seafood Allergy (Verified 02/04/25 13:03) Difficulty Breathing HPI HPI PO LT ulna shaft/MF P3 CRPP v ORIF 01/23/25 AR: Details: Abhi is a 44 year old left hand dominant man who presents today post operatively s/p Left distal ulnar shaft fracture ORIF and left middle finger distal phalanx fracture CRPP DOS: 01/23/25 w/ Dr Jaquelin Avelar. Patient reports that he is experiencing a burning throbbing pain with a current pain level 8 out of 10. He states pain medication oxycodone had not helped with his pain. He has completed antibiotics as prescribed. [facility] Medical History Smoker Asthma Surgical History Previous back surgery Social History Patient Tobacco Use Status: Current everyday Tobacco user Current occupational status: unemployed Current occupation: left hand Review of Systems Const All systems reviewed & are unremarkable except as noted in HPI and below Physical Exam Extrem Other: Patient is alert, oriented, and in no acute distress. Neuro: Normal sensation of the tips of all digits of the left hand at this time Vascular: Cap refill brisk Pain: Mild tenderness to palpation about the incision site on the ulnar aspect of the left wrist No tenderness to palpation about pin site at tip of left middle finger ROM: Patient was able to make closed fist and extend all digits of the left hand fully No active flexion at the left middle finger DIP joint due to pin Skin: Well approximated and well healing incision site noted on the ulnar aspect of the left wrist Sutures in place, no evidence of infection General: Pin site clean, dry, intact No ecchymosis, erythema, or evidence of infection. Psych: Appears grossly normal Affect normal Attitude cooperative Office Procedures Casting/Splints [id number]-[id number] Cast Application Procedure code (CPT) selection complete Assessment & Plan Assessment & Plan (1) Fracture of distal phalanx of left middle finger: Comment: Base Code(s): S62.633A - Displaced fracture of distal phalanx of left middle finger, initial encounter for closed fracture Category: Medical (2) Fracture of shaft of left ulna: Code(s): S52.A - Unspecified fracture of shaft of left ulna, initial encounter for closed fracture Category: Medical Plan 1. Status post ORIF of left ulnar shaft 2. Status post CRPP of distal phalanx of left middle finger DOS 01/23/2025 Patient appears to be recovering well postoperatively Patient is educated about the typical recovery course At this time, patient was placed into a short-arm cast Patient is educated on proper cast care and precautions Patient was also educated on proper pin site care and precautions, and is provided with dressing supplies for the left middle finger Patient is educated he should keep the pin site dressed at all times Patient expresses understanding of these instructions Patient will follow-up in 2 weeks with repeat x-rays for reassessment, sooner with any acute concerns Orders: Orders XR hand LT min 3V 02/04/25 M79.642 - Pain in left hand XR forearm LT 2V 02/04/25 S52.209A - Unspecified fracture of shaft of unspecified ulna, initial encounter for closed fracture, S52.90XA - Unspecified fracture of unspecified forearm, initial encounter for closed fracture Coding Level of Care Code Global (85102) Diagnoses Fracture of distal phalanx of left middle finger S62.633A Fracture of shaft of left ulna S52.A CPT Codes Casting - CPT: 30562-Lvrpnrw Cast Application ([id number])
== END 2025-02-04 14:02 | disposition home or self-care (01) ==
LOC: HO.HOS 12:37
PROVIDERS: PCP Internal Medicine Medical Oncology
DX: S62.633A Displaced fracture of distal phalanx of left middle finger, initial encounter for closed fracture (principal); S52.202A Unspecified fracture of shaft of left ulna, initial encounter for closed fracture
CPT/HCPCS: 29075; 99024

== ENCOUNTER → 2025-02-04 12:42 | Outpatient (BNV) | payer OTHER, SELFPAY | PROVIDERS: Visit Provider Radiology Diagnostic Radiology | DX: S62.633A Displaced fracture of distal phalanx of left middle finger, initial encounter for closed fracture (principal); S52.502A Unspecified fracture of the lower end of left radius, initial encounter for closed fracture | CPT/HCPCS: 73090; 73130 ==

== ENCOUNTER 2025-02-18 12:34 | Outpatient (REF) | payer OTHER, SELFPAY ==
--- NOTE | ~2025-02-18 | XR_ITS ---
EXAMINATION: XR HAND 3 OR MORE VIEWS LEFT, XR FOREARM 2 VIEWS LEFT HISTORY: M79.642 - Pain in left hand COMPARISON: Comparison is made with the prior examinations dated 02/04/2025. FINDINGS: Three views of the left hand and AP and lateral views of the left forearm are submitted. Osseous mineralization is normal. Again seen is a single K wire across the DIP joint of the middle finger. The fracture of the base of the distal phalanx is again seen. There is slight blurring of the fracture margins on the current study. The patient is also noted to be status post internal fixation of a comminuted fracture of the distal ulna with a sideplate and multiple orthopedic screws. The fracture lines remain visible. The joint spaces are preserved. The soft tissues are unremarkable. XR/XR hand LT min 3V IMPRESSION: Internal fixation of the fractures of the distal phalanx of the little finger and the distal ulna as described. Electronically signed by: Merritt Malone MD 02/19/2025 08:39 AM EDT
--- NOTE | ~2025-02-18 | XR_ITS ---
EXAMINATION: XR HAND 3 OR MORE VIEWS LEFT, XR FOREARM 2 VIEWS LEFT HISTORY: M79.642 - Pain in left hand COMPARISON: Comparison is made with the prior examinations dated 02/04/2025. FINDINGS: Three views of the left hand and AP and lateral views of the left forearm are submitted. Osseous mineralization is normal. Again seen is a single K wire across the DIP joint of the middle finger. The fracture of the base of the distal phalanx is again seen. There is slight blurring of the fracture margins on the current study. The patient is also noted to be status post internal fixation of a comminuted fracture of the distal ulna with a sideplate and multiple orthopedic screws. The fracture lines remain visible. The joint spaces are preserved. The soft tissues are unremarkable. XR/XR forearm LT 2V IMPRESSION: Internal fixation of the fractures of the distal phalanx of the little finger and the distal ulna as described. Electronically signed by: Merritt Malone MD 02/19/2025 08:39 AM EDT
== END 2025-02-18 12:35 | disposition home or self-care (01) ==
LOC: HO.HOSX 12:34
DX: S62.637D Displaced fracture of distal phalanx of left little finger, subsequent encounter for fracture with routine healing (principal); S52.602D Unspecified fracture of lower end of left ulna, subsequent encounter for closed fracture with routine healing; Z98.890 Other specified postprocedural states
CPT/HCPCS: 29075; 73090; 73130; 99212

== ENCOUNTER 2025-02-18 12:46 | Outpatient (AMB) | payer OTHER, SELFPAY ==
--- NOTE | 2025-02-18 13:07 | A.OFFVIS_ITS ---
Vital Signs 02/18/25 13:11 Height 5 ft 11 in Weight 183 lb BMI 25.5 Handedness Left Intake Visit Reasons: PO LT ulna shaft/MF P3 CRPP v ORIF 01/23/25 AR Intake Note: Abhi is a 44 year old left hand dominant male who presents today post operatively s/p left distal ulnar shaft fracture ORIF and left middle finger distal phalanx fracture CRPP DOS: 01/23/[address] Jaquelin Avelar. On 02/04/25 patient was placed in a short arm cast. Patient report he has pain in the left wrist and middle finger. He states he has current tingling in his left fingers radiating into the elbow. Patient has bruising on the distal aspect of left middle finger. Allergies iodine [IODINE] Allergy (Mild, Verified 02/18/25 13:12) RASH latex Allergy (Verified 02/18/25 13:12) Hives seafood Allergy (Verified 02/18/25 13:12) Difficulty Breathing HPI HPI PO LT ulna shaft/MF P3 CRPP v ORIF 01/23/25 AR: Details: Abhi is a 44 year old left hand dominant male who presents today post operatively s/p left distal ulnar shaft fracture ORIF and left middle finger distal phalanx fracture CRPP DOS: 01/23/[address] Jaquelin Avelar. On 02/04/25 patient was placed in a short arm cast. Patient report he has pain in the left wrist and middle finger. He states he has current tingling in his left fingers radiating into the elbow. Patient has bruising on the distal aspect of left middle finger. [facility] Medical History (Updated 02/18/25 @ 13:13 by DAVID Woodson) Fracture of shaft of left ulna Fracture of distal phalanx of left middle finger Smoker Asthma Surgical History Previous back surgery Social History Patient Tobacco Use Status: Current everyday Tobacco user Current occupational status: unemployed Current occupation: left hand Review of Systems Const All systems reviewed & are unremarkable except as noted in HPI and below Physical Exam Vital Signs: BMI result Body Mass Index 25.5 Extrem Other: Patient is alert, oriented, and in no acute distress. Neuro: Normal sensation of the tips of all digits of the left hand at this time Vascular: Cap refill brisk Pain: Mild tenderness to palpation about the incision site on the ulnar aspect of the left wrist No tenderness to palpation about pin site at tip of left middle finger ROM: Patient was able to make closed fist and extend all digits of the left hand fu lly No active flexion at the left middle finger DIP joint due to pin Skin: Well approximated and well healing incision site noted on the ulnar aspect of the left wrist Sutures in place, no evidence of infection General: Pin site clean, dry, intact No ecchymosis, erythema, or evidence of infection. Psych: Appears grossly normal Affect normal Attitude cooperative Office Procedures Casting/Splints 01325-Upxf/Wrist Cast Application 43840-Ecwipb Splint application Procedure code (CPT) selection complete Results Reviewed Results Reviewed: X-rays obtained in the office today and independently reviewed by me, Nathanael Jameson PA-C, demonstrate surgically reduced fracture of the left ulnar shaft as well as the left middle finger distal phalanx with all orthopedic hardware in place and in satisfactory clinical alignment. Assessment & Plan Assessment & Plan (1) Fracture of distal phalanx of left middle finger: Comment: Base Code(s): S62.633A - Displaced fracture of distal phalanx of left middle finger, initial encounter for closed fracture Category: Medical (2) Fracture of shaft of left ulna: Code(s): S52.202A - Unspecified fracture of shaft of left ulna, initial encounter for closed fracture Category: Medical Plan 1. Status post ORIF of left ulnar shaft 2. Status post CRPP of distal phalanx of left middle finger DOS 01/23/2025 Patient appears to be recovering well postoperatively Patient is educated about the typical recovery course At this time, patient was placed into a short-arm cast Patient is educated on proper cast care and precautions Patient was also educated on proper pin site care and precautions, and is provided with dressing supplies for the left middle finger Patient is educated he should keep the pin site dressed at all times Patient expresses understanding of these instructions Patient will follow-up in 2 weeks with repeat x-rays for reassessment, sooner with any acute concerns Orders: Orders XR hand LT min 3V 02/18/25 M79.642 - Pain in left hand XR forearm LT 2V 02/18/25 S52.209A - Unspecified fracture of shaft of unspecified ulna, initial encounter for closed fracture, S52.90XA - Unspecified fracture of unspecified forearm, initial encounter for closed fracture Coding Level of Care Code Global (87868) Diagnoses Fracture of distal phalanx of left middle finger S62.633A Fracture of shaft of left ulna S52.202A CPT Codes Casting - CPT: 73669-Zyoz/Wrist Cast Application ([id number]) Splint - CPT: 58446-Yorgxp Splint application ([id number])
[2025-02-18 13:11] VITALS: BMI 25.5
== END 2025-02-18 14:05 | disposition home or self-care (01) ==
LOC: HO.HOS 12:46
DX: S62.633A Displaced fracture of distal phalanx of left middle finger, initial encounter for closed fracture (principal); S52.202A Unspecified fracture of shaft of left ulna, initial encounter for closed fracture
CPT/HCPCS: 29075; 99024; 99070

== ENCOUNTER → 2025-02-18 12:49 | Outpatient (BNV) | payer OTHER, SELFPAY | PROVIDERS: Visit Provider Radiology Diagnostic Radiology | DX: M79.642 Pain in left hand (principal); M79.602 Pain in left arm | CPT/HCPCS: 73090; 73130 ==

== ENCOUNTER 2025-03-05 07:50 | Outpatient (REF) | payer OTHER, SELFPAY ==
--- NOTE | ~2025-03-05 | XR_ITS ---
CLINICAL HISTORY: S52.90XA - Unspecified fracture of unspecified forearm, initial encounte... 2 view left forearm Comparison: CR - XR FOREARM LT 2V - 01/18/25 17:58 EST Findings: Status postoperative fixation of the comminuted distal ulnar fracture. Alignment is near anatomic. No significant periosteal reaction at this time. No acute osseous findings. No significant arthritic change. IMPRESSION: 1. Operative fixation of a comminuted distal ulnar fracture in near anatomic alignment. Fracture lines remain visible. No evidence of hardware complication. This document has been electronically signed by: Marzena Quintero MD on 03/07/2025 06:09:32
--- NOTE | ~2025-03-05 | XR_ITS ---
CLINICAL HISTORY: M79.642 - Pain in left hand --- Additional Notes or Special Instructions: Pins in L MF 3 view left hand Comparison: CR - XR FINGER LT MIN 2V - 01/18/25 17:57 EST Findings: Pin fixation of the middle digit crossing the distal interphalangeal joint. The avulsion fracture along the dorsal aspect of the distal phalanx demonstrates some new periosteal reaction and early osseous bridging. Osseous structures of the hand are otherwise unremarkable. No significant loss of joint space or osteophytes. No erosions. No radiopaque foreign body. IMPRESSION: 1. Pin fixation across the distal interphalangeal joint of the 3rd digit with a healing avulsion fracture dorsally. This document has been electronically signed by: Marzena Quintero MD on 03/07/2025 06:08:31
== END 2025-03-05 07:51 | disposition home or self-care (01) ==
LOC: HO.HOSX 07:50
DX: M79.642 Pain in left hand (principal); S52.202A Unspecified fracture of shaft of left ulna, initial encounter for closed fracture; S62.633A Displaced fracture of distal phalanx of left middle finger, initial encounter for closed fracture
CPT/HCPCS: 73090; 73130; 99212

== ENCOUNTER 2025-03-05 13:01 | Outpatient (AMB) | payer OTHER, SELFPAY ==
--- NOTE | 2025-03-05 13:25 | A.OFFVIS_ITS ---
Vital Signs 03/05/25 13:26 Height 5 ft 11 in Weight 183 lb BMI 25.5 Intake Visit Reasons: PO LT ulna shaft/MF P3 CRPP v ORIF 01/23/25 AR Intake Note: Abhi is a 44 year old left hand dominant male who presents today post operatively s/p left distal ulnar shaft fracture ORIF and left middle finger distal phalanx fracture CRPP DOS: 01/23/[address] Jaquelin Avelar. On 02/18/25 patient was placed into a short-arm cast. Patient is doing well, he is feeling itchy from coming out of his cast. Allergies iodine [IODINE] Allergy (Mild, Verified 02/18/25 13:12) RASH latex Allergy (Verified 02/18/25 13:12) Hives seafood Allergy (Verified 02/18/25 13:12) Difficulty Breathing HPI HPI PO LT ulna shaft/MF P3 CRPP v ORIF 01/23/25 AR: Details: Abhi is a 44 year old left hand dominant male who presents today post operatively s/p left distal ulnar shaft fracture ORIF and left middle finger distal phalanx fracture CRPP DOS: 01/23/[address] Jaquelin Avelar. On 02/18/25 patient was placed into a short-arm cast. Patient is doing well, he is feeling itchy from coming out of his cast. No pain, denies numbness or tingling. Denies any concerns with the pin site. [facility] Medical History (Updated 02/18/25 @ 13:13 by Nancy Coker [facility]) Fracture of shaft of left ulna Fracture of distal phalanx of left middle finger Smoker Asthma Surgical History (Reviewed 02/04/25 @ 13:06 by Sania Garcia [facility]) Previous back surgery Social History Patient Tobacco Use Status: Current everyday Tobacco user Current occupational status: unemployed Current occupation: left hand Review of Systems Const All systems reviewed & are unremarkable except as noted in HPI and below Physical Exam Vital Signs: BMI result Body Mass Index 25.5 Extrem Other: Patient is alert, oriented, and in no acute distress. Neuro: Normal sensation of the tips of all digits of the left hand at this time Vascular: Cap refill brisk Pain: No tenderness to palpation about the incision site on the ulnar aspect of the le ft wrist No tenderness to palpation about pin site at tip of left middle finger ROM: Patient has significant limitations with range of motion of the left hand, particularly the middle, ring, small fingers Worst in the left middle finger After significant time spent working on passive range of motion, patient is able to get a proximally 60-70% of the way to a closed fist with the left middle finger, and about 80% the way to a closed fist with the other 2 digits that were particularly stiff Skin: Well approximated and well healing incision site noted on the ulnar aspect of the left wrist Sutures in place, no evidence of infection General: Pin site clean, dry, intact No ecchymosis, erythema, or evidence of infection. Psych: Appears grossly normal Affect normal Attitude cooperative Results Reviewed Results Reviewed: X-rays obtained in the office today and independently reviewed by me, Nathanael Jameson PA-C, demonstrate surgically reduced fracture of the left ulnar shaft as well as the left middle finger distal phalanx with all orthopedic hardware in place and in satisfactory clinical alignment and with evidence of interval bony healing. Assessment & Plan Assessment & Plan (1) Fracture of distal phalanx of left middle finger: Comment: Base Code(s): S62.633A - Displaced fracture of distal phalanx of left middle finger, initial encounter for closed fracture Category: Medical (2) Fracture of shaft of left ulna: Code(s): S52.202A - Unspecified fracture of shaft of left ulna, initial encounter for closed fracture Category: Medical Plan 1. Status post ORIF of left ulnar shaft 2. Status post CRPP of distal phalanx of left middle finger DOS 01/23/2025 Patient appears to be recovering well postoperatively Patient is educated about the typical recovery course At this time, patient is removed from short-arm cast and provided with a Velcro wrist splint to wear whenever he is leaving the house and with daytime activities Patient was also provided with fingertips splint to be worn for 8 hours a day Patient is educated on proper cast care and precautions Patient was also educated on proper pin site care and precautions, and then he can wash it with soap and water in the sink or the shower in approximately 1-2 days, but then he should be waiting at least 5 days to submerge that pain Patient referred to OT for range of motion and gentle strengthening of the left hand and wrist Patient expresses understanding of these instructions Patient will follow-up in 4 weeks with repeat x-rays for reassessment, sooner with any acute concerns Orders: Orders XR hand LT min 3V Today M79.642 - Pain in left hand XR forearm LT 2V Today S52.209A - Unspecified fracture of shaft of unspecified ulna, initial encounter for closed fracture, S52.90XA - Unspecified fracture of unspecified forearm, initial encounter for closed fracture OT Evaluation and Treatment Today S62.633A - Displaced fracture of distal phalanx of left middle finger, initial encounter for closed fracture Coding Level of Care Code Global (41310) Diagnoses Fracture of distal phalanx of left middle finger S62.633A Fracture of shaft of left ulna S52.202A
[2025-03-05 13:26] VITALS: BMI 25.5
== END 2025-03-05 14:32 | disposition home or self-care (01) ==
LOC: HO.HOS 13:02
DX: S62.633A Displaced fracture of distal phalanx of left middle finger, initial encounter for closed fracture (principal); S52.202A Unspecified fracture of shaft of left ulna, initial encounter for closed fracture
CPT/HCPCS: 99024

== ENCOUNTER → 2025-03-05 13:08 | Outpatient (BNV) | payer OTHER, SELFPAY | PROVIDERS: Visit Provider Radiology Diagnostic Radiology | DX: M79.642 Pain in left hand (principal); S52.90XA Unspecified fracture of unspecified forearm, initial encounter for closed fracture | CPT/HCPCS: 73090; 73130 ==

== ENCOUNTER 2025-03-29 02:18 | Emergency (ER) | payer OTHER, SELFPAY ==
--- NOTE | 2025-03-29 | ECG_ITS ---
Test Reason : SOB Blood Pressure : */* mmHG Vent. Rate : 50 BPM Atrial Rate : 50 BPM P-R Int : 142 ms QRS Dur : 106 ms QT Int : 428 ms P-R-T Axes : 10 -38 65 degrees QTcB Int : 390 ms Sinus bradycardia Left axis deviation Incomplete right bundle branch block Abnormal ECG No previous ECGs available Referred By: Generic ED Physician Electronically Signed By: SONU JENNINGS
--- NOTE | ~2025-03-29 | XR_ITS ---
CLINICAL HISTORY: sob 2 view chest x-ray Comparison: None Findings: Mild left lower lobe atelectasis. No significant pleural effusion or pneumothorax. Normal size heart. No acute fracture. IMPRESSION: Mild left lower lobe atelectasis. This document has been electronically signed by: Benosn Garcia MD on 03/29/2025 03:27:35
[2025-03-29 02:22] VITALS: BP 148/101; BP 155/105; PULSE 55; PULSE 80; RESP 18; TEMP 36.5; O2SAT 98; BMI 26.2
[2025-03-29 02:42] LABS: MANUAL DIFF FLAG NO
[2025-03-29 02:43] LABS: Basophils Absolute Auto 0.1 X10*3/uL (0.0-0.2); Basophils Percent Auto 0.9 % (0-2); Eosinophils Absolute Auto 0.7 X10*3/uL (0.0-0.4); Eosinophils Percent Auto 8.5 % (0-4); Hematocrit 43.6 % (42.0-52.0); Hemoglobin 15.6 g/dl (14.0-18.0); Imm Gran Abs Auto 0.02 X10*3/uL (0.00-0.03); Imm Gran Pct Auto 0.2 % (0.0-0.4); Lymphocytes Absolute Auto 1.8 X10*3/uL (1.2-4.9); Lymphocytes Percent Auto 21.1 % (20-40); Mean Corpuscular HGB Conc 35.8 g/dl (31.0-36.0); Mean Corpuscular Hemoglobin 31.6 pg (27.0-33.0); Mean Corpuscular Volume 88.4 fL (80.0-98.0); Mean Platelet Volume 10.6 fL (9.4-12.4); Monocytes Absolute Auto 0.6 X10*3/uL (0.1-1.2); Monocytes Percent Auto 6.5 % (2-11); Neutrophils Absolute Auto 5.5 x10*3/uL (2.0-8.3); Neutrophils Percent Auto 62.8 % (45-73); Platelet Count 184 X10*3/uL (160-400); Red Blood Count 4.93 X10*6/uL (4.60-5.80); Red Cell Distribution Width 12.3 % (11.0-16.0); White Blood Count 8.7 X10*3/uL (4.8-10.8)
[2025-03-29] MEDS: Albuterol Sulfate 5 MG, Albuterol Sulfate (0.083%) 2.5 MG 7.5 MG INHALE (02:47)
[2025-03-29 02:48] VITALS: PULSE 68; RESP 18; O2SAT 95
--- NOTE | 2025-03-29 03:05 | PC.NURSE ---
pt a&ox4, respirations even and unlabored. pt reports sudden onset of shortness of breath and chest pain. pt reports hx of asthma but does not have inhalers at home. pt reports also being in the shower and experiencing right ear pain. pt received duoneb in ambulance with good relief. on arrival pt noted to have expiratory wheezing, rt at bedside administering duoneb. 20g right ac. nrs on tele
[2025-03-29 03:14] LABS: Alanine Aminotransferase 73 U/L (0-40); Albumin Level 4.6 g/dL (3.5-5.0); Alkaline Phosphatase 53 U/L (39-117); Anion Gap 13 (12-20); Aspartate Amino Transferase 40 U/L (5-37); Bilirubin Total 0.6 mg/dL (0.0-1.0); Blood Urea Nitrogen 10 mg/dL (9-16); Calcium 9.2 mg/dL (8.4-10.2); Carbon Dioxide 29 mmol/L (22-29); Chloride 104 mmol/L (96-108); Estimated Glomerular Filt Rate > 60; Glucose Random 103 mg/dL (60-115); Sodium 142 mmol/L (135-145); Total Protein 7.3 g/dL (6.5-8.0); Troponin-I High Sensitivity < 2.7 ng/L (<3.5-35.0)
--- NOTE | 2025-03-29 03:17 | ED_ITS ---
HPI - SOB/Dyspnea General Chief Complaint: Dyspnea Stated Complaint: CHEST PAIN/SOB Time Seen by Provider: 03/29/25 02:34 Source: patient Mode of arrival: ambulatory Limitations: no limitations History of Present Illness ED Provider: HPI Narrative: Patient's history of asthma was taking shower soon after taking shower patient is started feeling short of breath wheezing received 1 DuoNeb treatment by EMS with good relief patient is agreeable he gets severe asthma at the does not have any lower at home also complaining of pain in the right for last few days Related Data Previous Rx's ?Medication ?Instructions ?Recorded ibuprofen 600 mg tablet 600 mg PO Q8H PRN pain #20 tabs 01/23/25 albuterol sulfate 90 mcg/actuation 2 puff inhalation Q6H PRN 03/29/25 aerosol inhaler shortness of breath or wheezing #8.5 grams amoxicillin 875 mg-potassium 1 tab PO BID #20 tabs 03/29/25 clavulanate 125 mg tablet prednisone 20 mg tablet 40 mg (2 x 20 mg) PO DAILY #10 tabs 03/29/25 Allergies Allergy/AdvReac Type Severity Reaction Status Date / Time iodine [IODINE] Allergy Mild RASH Verified 03/29/25 02:25 latex Allergy Hives Verified 03/29/25 02:25 seafood Allergy Difficulty Verified 03/29/25 02:25 Breathing Review of Systems 2 Review of Systems: Yes all other systems are reviewed and are negative [facility] Past Medical History Medical History Fracture of shaft of left ulna Fracture of distal phalanx of left middle finger Smoker Asthma Surgical History Previous back surgery Social History Social History Patient Tobacco Use Status: Current everyday Tobacco user Smoked in Last 30 Days: No Use of substances other than those prescribed or required for medical reasons: No Advance Directives: No Advance Directives Information Provided: No Do you have a plan to hurt others: No Plan Current occupational status: unemployed Current occupation: left hand Physical Exam 2 Vital Signs: Vital Signs: Last Vital Signs Temp 98.4 F 03/29/25 05:26 Pulse 79 03/29/25 05:26 Resp 18 03/29/25 05:26 BP 136/86 03/29/25 05:26 Pulse Ox 98 03/29/25 05:26 O2 Del Method Room Air 03/29/25 05:26 BMI result Body Mass Index 26.2 Appearance: Alert. Oriented X3. No acute distress. Eyes: No Pallor or icterus ENT: Pharynx normal. Oral Mucosa moist Neck: Normal inspection. Neck supple. CVS: Normal heart rate and rhythm. Pulses normal. Respiratory: No respiratory distress. Equal air entry bilateral, bilateral wheezing Abdomen: Soft and nontender. Bowel sounds are present, no mass palpable, no CVA tenderness Skin: Skin warm and dry. Normal skin color. Normal skin turgor. Extremities: No lower extremity edema. No calf tenderness Neuro: Oriented X 3. No motor deficit. Medications Administered Discontinued Medications Generic Name Dose Route Start Last Admin Trade Name Freq PRN Reason Stop Dose Admin Albuterol Sulfate 5 mg/ 7.5 mg 03/29/25 02:41 03/29/25 02:47 Albuterol Sulfate 2.5 mg INHALE 03/29/25 02:42 7.5 mg ONCE ONE Administration Albuterol Sulfate 4 puff 03/29/25 05:17 03/29/25 05:26 Albuterol Sulfate 90 Mcg 8 Gm Inhaler INHALE 03/29/25 05:18 4 puff ONCE ONE Administration Amoxicillin/Clavulanate Potassium 875 mg 03/29/25 04:37 03/29/25 04:59 Amoxicillin/Potassium Clav 875 Mg Tablet PO 03/29/25 04:38 875 mg ONCE ONE Administration Methylprednisolone Sodium Succinate 125 mg 03/29/25 03:22 03/29/25 03:55 Methylprednisolone Sod Succ 125 Mg Vial IVPUSH 03/29/25 03:23 125 mg ONCE ONE Administration Medical Decision Making Medical Decision Making [facility] Narrative: Patient has acute asthma exacerbation responded to nebulizing treatment also has right otitis will discharge patient home on steroids inhaler and antibiotics Lab Data [facility] Lab Attestation statement: I reviewed the patient's lab results. 03/29/25 02:30 03/29/25 02:30 Labs: Lab Results 03/29/25 Range/Units 02:30 WBC 8.7 (4.8-10.8) X10*3/uL RBC 4.93 (4.60-5.80) X10*6/uL Hgb 15.6 (14.0-18.0) g/dl Hct 43.6 (42.0-52.0) % MCV 88.4 (80.0-98.0) fL MCH 31.6 (27.0-33.0) pg MCHC 35.8 (31.0-36.0) g/dl RDW 12.3 (11.0-16.0) % Plt Count 184 (160-400) X10*3/uL MPV 10.6 (9.4-12.4) fL Immature Gran % (Auto) 0.2 (0.0-0.4) % Neut % (Auto) 62.8 (45-73) % Lymph % (Auto) 21.1 (20-40) % [place] % (Auto) 6.5 (2-11) % Eos % (Auto) 8.5 H (0-4) % Baso % (Auto) 0.9 (0-2) % Lymph # (Auto) 1.8 (1.2-4.9) X10*3/uL [place] # (Auto) 0.6 (0.1-1.2) X10*3/uL Eos # (Auto) 0.7 H (0.0-0.4) X10*3/uL Baso # (Auto) 0.1 (0.0-0.2) X10*3/uL Abs Immat Gran (auto) 0.02 (0.00-0.03) X10*3/uL Absolute Neuts (auto) 5.5 (2.0-8.3) x10*3/uL Absolute Nucleated RBC 0.000 (0.0-0.012) X10*3/uL Nucleated RBC % (auto) 0.0 (0.0-0.2) /100WBC Sodium 142 (135-145) mmol/L Potassium 4.0 (3.3-5.1) mmol/L Chloride 104 (96-108) mmol/L Carbon Dioxide 29 (22-29) mmol/L Anion Gap 13 (12-20) BUN 10 (9-16) mg/dL Creatinine 0.91 (0.5-1.4) mg/dL Estim Creat Clear Calc 108.0 Estimated GFR > 60 Random Glucose 103 (60-115) mg/dL Calcium 9.2 (8.4-10.2) mg/dL Total Bilirubin 0.6 (0.0-1.0) mg/dL AST 40 H (5-37) U/L ALT 73 H (0-40) U/L Alkaline Phosphatase 53 (39-117) U/L Troponin I High Sens < 2.7 (<3.5-35.0) ng/L Total Protein 7.3 (6.5-8.0) g/dL Albumin 4.6 (3.5-5.0) g/dL Influenza Type A (PCR) NEGATIVE (Negative) Influenza Type B (PCR) NEGATIVE (Negative) RSV RNA Qual (PCR) NEGATIVE (Negative) SARS-CoV-2 RNA (RT-PCR) NEGATIVE (Negative) Independent Interpretation I performed an independent interpretation of an: Plain X-Ray Radiology Impression Discussion of test interpretation with radiology: I have reviewed the radiologist's reading. Radiologist Impression: No acute Discharge Plan Discharge Clinical Impression: Asthma with exacerbation, Otitis media Patient Disposition: Home, Self-Care Instructions: Asthma (ED), Ear Infection (ED) Additional Instructions: Use inhaler as prescribed Prednisone antibiotic as prescribed Follow with your PCP Prescriptions: New prednisone 20 mg tablet 40 mg PO DAILY Qty: 10 0RF albuterol sulfate 90 mcg/actuation HFA aerosol inhaler 2 puff inhalation Q6H PRN (Reason: shortness of breath or wheezing) Qty: 8.5 0RF amoxicillin-pot clavulanate 875-125 mg tablet 1 tab PO BID Qty: 20 0RF No Action ibuprofen 600 mg tablet 600 mg PO Q8H PRN (Reason: pain) Qty: 20 0RF Interventions: ED Discharge Assessment Last Done: 03/29/25 05:20 Discharge Date/Time: 03/29/25 06:00 Print Language: Vietnamese
[2025-03-29 03:27] LABS: Influenza A PCR NEGATIVE (Negative); Influenza B PCR NEGATIVE (Negative); Resp Syncy Virus RNA Qual PCR NEGATIVE (Negative); SARS COV2 PCR INHOUSE NEGATIVE (Negative)
[2025-03-29 04:54] VITALS: BP 136/88; PULSE 83; RESP 20; TEMP 36.5; O2SAT 96
[2025-03-29] MEDS: Amoxicillin/Potassium Clav 875 MG TABLET PO (04:59)
--- NOTE | 2025-03-29 05:17 | PC.NURSE ---
pt medicated per mar, tolerated whole well with water.
[2025-03-29 05:20] VITALS: BP 136/86; PULSE 79; RESP 18; TEMP 36.9; O2SAT 98
[2025-03-29 05:26] VITALS: BP 136/86; PULSE 79; RESP 18; TEMP 36.9; O2SAT 98
[2025-03-29] MEDS: Albuterol Sulfate 90 MCG 8 GM INHALER 4 PUFF INHALE (05:26)
== END 2025-03-29 06:00 | disposition home or self-care (01) ==
PROVIDERS: Emergency Provider Internal Medicine; PCP Internal Medicine Medical Oncology
DX: J45.901 Unspecified asthma with (acute) exacerbation (principal); H66.93 Otitis media, unspecified, bilateral; R07.89 Other chest pain; R06.02 Shortness of breath; Z03.818 Encounter for observation for suspected exposure to other biological agents ruled out
CPT/HCPCS: 0241U; 71046; 80053; 84484; 85025; 93005; 94640; 96374; 99284; 99285; J2919

== ENCOUNTER → 2025-03-29 02:23 | Outpatient (BNV) | payer OTHER, SELFPAY | PROVIDERS: Emergency Provider Internal Medicine; PCP Internal Medicine Medical Oncology; Visit Provider Internal Medicine | DX: R06.02 Shortness of breath (principal); R00.1 Bradycardia, unspecified; I45.19 Other right bundle-branch block | CPT/HCPCS: 93010 ==

== ENCOUNTER → 2025-03-29 02:30 | Outpatient (BNV) | payer OTHER, SELFPAY | PROVIDERS: Emergency Provider Internal Medicine; PCP Internal Medicine Medical Oncology; Visit Provider Radiology Diagnostic Radiology | DX: R07.9 Chest pain, unspecified (principal) | CPT/HCPCS: 71046 ==